=== PATIENT | female | born 1955 | race Hispanic/Latino ===

== ENCOUNTER → 2019-05-04 | Outpatient (CLI) | payer OTHER | END | disposition home or self-care (01) | LOC: RAH 13:00 | PROVIDERS: ATTEND Internal Medicine Cardiovascular Disease | DX: Z13.6 Encounter for screening for cardiovascular disorders (principal) | CPT/HCPCS: 75571 ==

== ENCOUNTER → 2019-05-31 | Outpatient (CLI) | payer MEDICARE ==
[~2019-05-31] MED LIST: REGADENOSON 0.4 MG/5 ML PF SYG IVP SCH
== END | disposition home or self-care (01) ==
LOC: SHCH 08:43
PROVIDERS: ATTEND Internal Medicine Cardiovascular Disease
DX: I25.9 Chronic ischemic heart disease, unspecified (principal)
CPT/HCPCS: 78452; 93017; 96374; A9500 ×2; J2785

== ENCOUNTER 2019-06-09 07:17 | Day surgery (SDC) | payer MEDICARE, OTHER ==
[2019-06-08 14:06] LABS: BASOPHILS % (AUTO) 1.1 % (0.0-5.0); EOSINOPHILS % (AUTO) 3.6 % (0.0-8.0); HEMATOCRIT 35.4 % (36-48); MEAN CORPUSCULAR HEMOGLOBIN 29.2 pg (27.0-33.0); MEAN CORPUSCULAR HGB CONC 34.6 g/dL (32.0-36.0); MEAN CORPUSCULAR VOLUME 84.6 fL (79-99); MONOCYTES % (AUTO) 8.5 % (3.0-13.0); NEUTROPHILS % (AUTO) 63.8 % (40.0-77.0); PLATELET COUNT (AUTO) 254 K/uL (130-400); RED BLOOD CELL COUNT(AUTO) 4.19 MIL/uL (4.00-5.50); RED CELL DISTRIBUTION WIDTH 13.9 % (11.0-15.5); WHITE BLOOD COUNT (AUTO) 9.6 K/uL (4.8-10.8)
[2019-06-08 14:08] VITALS: BP 125/54
[2019-06-08 14:12] LABS: APPEARANCE,URINE Clear (CLEAR); BILIRUBIN,URINE Negative (NEGATIVE); COLOR,URINE Yellow (YELLOW); GLUCOSE, URINE (UA) Negative (NEGATIVE); KETONES,URINE Negative (NEGATIVE); LEUKOCYTE ESTERASE ,URINE Trace (NEGATIVE); NITRATE,URINE Negative (NEGATIVE); OCCULT BLOOD,URINE Negative (NEGATIVE); PH,URINE 5.5 (5.0-8.0); PROTEIN,URINE Negative (NEGATIVE); UROBILINOGEN,URINE 0.2 mg/dL (0.2-1.0)
[2019-06-08 14:13] LABS: POTASSIUM 4.6 mmol/L (3.5-5.1)
[2019-06-08 14:19] LABS: INR 1.01 (0.85-1.15); PARTIAL THROMBOPLASTIN TIME 29.9 SEC (26.3-35.5); PROTHROMBIN TIME 10.6 SEC (9.6-11.6)
[2019-06-08 14:51] LABS: BACTERIA,URINE Few /HPF (None Seen); RBC,URINE 0-1 /HPF (0-1); SQUAMOUS EPITHELIAL CELL,UR Rare /HPF (0-2)
[~2019-06-09] VITALS: Ht 170.2 cm; Wt 105.4 kg
[2019-06-09] VITALS (10 sets, daily range): BP systolic 117–148; BP diastolic 51–73
[~2019-06-09 07:17] MED LIST changes: +ACETAMINOPHEN 325 MG TAB PO PRN; +ASPI-555 PO; +ATOR20TA65 PO; +CHOL200026 PO; +FIBER PO; +LISI10TA7 PO; +METF-446 PO; -REGADENOSON 0.4 MG/5 ML PF SYG IVP SCH; +SODIUM CHLORIDE 0.9% 500ML 500 ML IV SCH
[2019-06-09] MEDS ORDERED: SODIUM CHLORIDE 0.9% 1000ML 1,000 ML IV ONE (07:27)
[2019-06-09] MEDS ORDERED: SODIUM BICARB 50MEQ 50ML VIAL ONE (11:57)
[2019-06-09] MEDS ORDERED: IOHEXOL-350 50ML VIAL IV ONE (11:58)
[2019-06-09] MEDS ORDERED: LIDOCAINE HCL 2% 20ML ONE (11:58)
[2019-06-09] MEDS ORDERED: NITROGLYCERIN 5 MG/ML 10 ML VIAL IV ONE (11:58)
[2019-06-09] MEDS ORDERED: IOHEXOL 350 MG/ML 100ML INFUS..BTL IV ONE (11:58)
[2019-06-09] MEDS ORDERED: HEPARIN SODIUM 1000UNIT/ML 10ML VIAL ONE (11:58)
[2019-06-09] MEDS ORDERED: MEPERIDINE-PF 25 MG/ML SYG ONE (11:58)
[2019-06-09] MEDS ORDERED: MIDAZOLAM HCL 1 MG/ML 2ML VIAL ONE (11:58)
[2019-06-09] MEDS ORDERED: SODIUM CHLORIDE 0.9% 1000ML 1,000 ML IV SCH (13:00)
[2019-06-09] MEDS ORDERED: GLUCAGON 1MG KIT 1 MG ML IM PRN (13:00)
[2019-06-09] MEDS ORDERED: DEXTROSE 50%-WATER 50 ML DISP.SYRIN IV PRN (13:00)
--- NOTE | 2019-06-09 13:15 | NUR ---
ASSESSMENT RECEIVED PT FROM RING ROLLING MACHINE OPERATOR STAFF NESTOR PALACIO. PT INSTRUCTED ON IMPORTANCE OF KEEPING RIGHT LEG STRAIGHT AND NBOT LIFTING HEAD UP OFF OF BED. BOTH AT PT VERBALIZED UNDERSTANDING.
--- NOTE | 2019-06-09 14:08 | NUR ---
DISCHARGE ORAL AND WRITTEN DISCHARGE INSTRUCTIONS TO PT AND PTS . INSTRUCTED ON IMPORTANCE OF HOLDING METFORMIN FOR 48 HOURS AFTER PROCEDURES. BOTH VERBALIZED UNDERSTANDING. INSTRUCTED ON IMPORTANCE OF FOLLOWING INSTRUCTIONS GIVEN BY DR. GRECO. BOTH VERBALIZED UNDERSTANDING.
[2019-06-09] MEDS ORDERED: INSULIN HUMULIN R 100 UNIT/ML 3ML SQ SCH (16:30)
--- NOTE | 2019-06-09 16:30 | NUR ---
HANDOFF COMMUNICATION HANDOFF NURSING REPORT USING SBAR RECEIVED FROM ANTON WILSON RN AT PATIENT'S BEDSIDE. FEMORAL SITE CHECKED, DRESSING DRY AND INTACT, AREA SOFT/NONTENDER. LIGHT PINK STAIN OF BLOOD NOTED ON DRESSING AND MARKED.
--- NOTE | 2019-06-09 17:20 | NUR ---
PATIENT DISCHARGED PATIENT DISCHARGED FROM FACILITY VIA WHEELCHAIR, PATIENT ABLE TO TRANSFER HERSELF INTO PRIVATE VEHICLE UNASSISTED DRIVEN BY FAMILY.
== END 2019-06-09 17:20 | disposition home or self-care (01) ==
LOC: DAH 07:17
PROVIDERS: ATTEND Internal Medicine Cardiovascular Disease
DX: I25.10 Atherosclerotic heart disease of native coronary artery without angina pectoris (principal); I10 Essential (primary) hypertension; E11.9 Type 2 diabetes mellitus without complications; E78.5 Hyperlipidemia, unspecified; Z79.84 Long term (current) use of oral hypoglycemic drugs; Z79.01 Long term (current) use of anticoagulants; Z79.899 Other long term (current) drug therapy
CPT/HCPCS: 36415; 71045; 80048; 81001; 82948 ×2; 85025; 85610; 85730; 93005; 93458; A4215; A4216; A4221; A4222; A4223 ×3; A4606; C1760; C1894; J1644; J3490 ×3; J7030; Q9965; Q9967 ×2; J2175; J2250

== ENCOUNTER → 2019-06-23 | Outpatient (CLI) | payer MEDICARE, OTHER ==
[~2019-06-23] MED LIST changes: -ACETAMINOPHEN 325 MG TAB PO PRN; -SODIUM CHLORIDE 0.9% 500ML 500 ML IV SCH
== END | disposition home or self-care (01) ==
LOC: RAH 07:36
PROVIDERS: ATTEND Internal Medicine Gastroenterology
DX: K80.20 Calculus of gallbladder without cholecystitis without obstruction (principal); K76.89 Other specified diseases of liver; B18.2 Chronic viral hepatitis C
CPT/HCPCS: 76700; 93975

== ENCOUNTER → 2019-10-07 | Outpatient (CLI) | payer MEDICARE, OTHER | END | disposition home or self-care (01) | LOC: RAH 11:22 | PROVIDERS: ATTEND Family Medicine | DX: M25.512 Pain in left shoulder (principal) | CPT/HCPCS: 73030 ==